=== PATIENT | male | born 1990 | race Caucasian/White ===

== ENCOUNTER 2016-07-27 20:35 | Emergency (ER) | payer OTHER ==
[~2016-07-27] VITALS: Ht 182.9 cm; Wt 70.3 kg
[2016-07-27 20:43] VITALS: TEMP 37; Ht 182.9 cm; Wt 70.3 kg
[2016-07-27] MEDS ORDERED: ACET-1256 PO (21:23)
[2016-07-27] MEDS ORDERED: IBUP-1050 PO (21:23)
[2016-07-27] MEDS ORDERED: METR-163 PO (21:23)
[2016-07-27] MEDS ORDERED: PNC/500 PO (21:23)
[2016-07-27 21:38] VITALS: BP 126/85; PULSE 72; O2SAT 98
--- NOTE | 2016-07-28 23:56 | EMERGENCY ROOM VISIT NOTE ---
ED Visit Note First contact with patient: 20:54 CHIEF COMPLAINT: Right-sided jaw and tooth pain. HISTORY OF PRESENT ILLNESS: Mr. Patel is a 25-year-old white male who ambulates into the ED complaining of right-sided jaw and dental pain. He reports for the last 6 weeks he has been experiencing mandibular and tooth pain on the right side of the face. He reports he has been seen by a dentist, to orthopedic surgeries and an orthopedist to evaluate him for this pain. No cause for his pain was found was speculated that this could be mildly impacted wisdom teeth. He places the majority of his discomfort in the right preauricular area. He describes it as an achy sensation. His pain is most prominent when he is bleeding down. He rates his discomfort 5/10. The pain is nonradiating. He has mild relief of his pain when he is using ibuprofen and is prescribed antibiotics. He denies any associated symptoms with his pain but does report this afternoon he took a nap for approximately 2 hours and when he awoke 3 hours ago he noticed a large area of swelling in the submandibular area on the right. He reports the swelling has self resolved over the last 3 hours. During his visits with the specialist TMJ syndrome was evaluated, dental abscesses were evaluated, impacted wisdom teeth, dental abscess and dental decay were all evaluated and none was found. He denies any associated symptoms including fevers, chills, sweats, skin eruptions, skin color changes, facial swelling, recent dental trauma, sore throat, difficulty swallowing, voice changes, drooling. REVIEW OF SYSTEMS: As noted above in History of Present Illness. 8 body systems were reviewed with this patient and found to be negative unless noted above otherwise. PMH: Unspecified wrist surgery. CURRENT MEDICATION: Pen-Vee K, Flagyl, Aleve, Tylenol. ALLERGIES TO MEDICATION: Patient denies. SOCIAL HISTORY: Patient is currently employed; he feels safe in his home environment; he admits to tobacco use and denies alcohol use. PHYSICAL EXAM: Vital Signs: Temperature C orally; blood pressure ; heart rate ; respiratory rate . General: year-old white female in mild distress due to pain, nontoxic appearing , afebrile and hemodynamically stable. Neurological: Awake, alert and oriented to person, place and time. Answering questions appropriately and following commands. Normal gait. Good hand eye coordination. No focal motor or sensory deficits. Skin: Warm, dry and pink. No soft tissue lesions, rashes, or trauma noted. HEENT: Atraumatic and normocephalic. Oral cavity is moist and pink. Airway is patent. Uvula is midline and no abscesses are seen. Airway is patent. Speech is normal. No drooling. No intraoral trauma is noted. There is no obvious signs of dental decay. No abscesses, erythema or edema identified. No cervical or submandibular lymphadenopathy. ED COURSE: Patient is assessed as noted above. Patient is educated about his findings and instructed on his treatment plan; he verbalizes understanding and agreement with this plan. CLINIC IMPRESSION: Right mandibular and dental pain. DISPOSITION: Patient discharged home in stable condition; prior to departure he was reassessed and subjectively reported he was feeling the same. PLAN: Patient was encouraged to continue his current pain medications and antibiotics as prescribed. Patient was encouraged to follow-up with his specialist for definitive care and treatment. Patient was encouraged to return the ED for uncontrolled pain, facial swelling, fevers or any new/concerning symptoms.
== END 2016-07-27 21:37 | disposition home or self-care (01) ==
LOC: C.EDB 20:36 → C.EDD 21:37
DX: K08.89 Other specified disorders of teeth and supporting structures (principal); R68.84 Jaw pain; F17.200 Nicotine dependence, unspecified, uncomplicated; Z98.890 Other specified postprocedural states